=== PATIENT | male | born 1990 | race Caucasian/White ===

== ENCOUNTER 2021-12-16 10:21 | Observation (INO) ==
[2021-12-16] MEDS ORDERED: *HR* Dextrose 50 % in Water (Syg) 50 ML SYRINGE ONE (10:34)
[2021-12-16] MEDS ORDERED: 0.9 % Sodium Chloride 1,000 ML IV ONE ×2 (10:45→15:02)
[2021-12-16] MEDS ORDERED: Ondansetron 4 MG/2 ML VIAL IVP ONE ×2 (10:45→15:02)
[2021-12-16] MEDS ORDERED: *HR* Dextrose 50 % in Water (Syg) 50 ML SYRINGE IVP ONE (10:58)
[2021-12-16] MEDS ORDERED: Ibuprofen 600 MG TABLET PO STA (11:01)
[2021-12-16 11:43] LABS: Alanine Aminotransferase 9 Units/L (7-52); Albumin 4.3 g/dL (3.5-5.7); Albumin/Globulin Ratio 1.2 (1.1-2.2); Alkaline Phosphatase 51 Units/L (34-104); Amylase 19 Units/L (29-103); Aspartate Amino Transferase 18 Units/L (13-39); BUN/Creatinine Ratio 20 (6-26); Bilirubin,Total 0.2 mg/dL (0.3-1.0); Blood Urea Nitrogen 16 mg/dL (6-20); Carbon Dioxide 19 mEq/L (23-29); Chloride 103 mEq/L (98-107); Globulin 3.6 g/dL (2.4-3.5); Glucose 173 mg/dL (70-105); Lipase 13 Units/L (11-82); Osmolality,Calculated 299 (280-300); Potassium 3.5 mEq/L (3.5-5.1); Sodium 142 mEq/L (136-145); Total Protein 7.9 g/dL (6.4-8.9)
[2021-12-16 12:19] LABS: Troponin I < 0.03 ng/mL (< 0.04)
[2021-12-16 12:26] LABS: Bilirubin,Urine Negative (Negative); Blood,Urine Trace-intact (Negative); Clarity,Urine Slightly Cloudy (Clear); Color,Urine Yellow (Yellow); Glucose,Urine (UA) 100 mg/dL (Normal); Ketones,Urine 40 mg/dL (Negative); Leukocyte Esterase,Urine Negative (Negative); Nitrite,Urine Negative (Negative); PH,Urine 5.5 pH Units (5.0-8.0); Protein,Urine 100 mg/dL (Neg-Trace); Specific Gravity,Urine >= 1.030 (1.010-1.025); Urobilinogen,Urine Normal (Normal)
[2021-12-16 12:30] LABS: Bacteria,Urine Few per hpf (None-Few); RBC,Urine 0-3 per hpf (0-3); Squamous Epithelial Cell,Urine Few per hpf (None-Few)
[2021-12-16 13:15] LABS: Basophils % 0.3 %; Eosinophils % 0.3 %; Hematocrit 39.5 % (37.5-50.1); Hemoglobin 11.7 g/dL (12.9-16.9); Immature Granulocytes % 0.5 % (0-4); Lymphocytes % 14.1 %; Mean Corpuscular HGB Conc 29.6 g/dL (31.6-35.5); Mean Corpuscular Hemoglobin 23.9 pg (28.0-33.3); Mean Corpuscular Volume 80.8 fL (83.0-100.0); Mean Platelet Volume 9.1 fL (9.4-12.4); Monocytes # 0.3 K/mcL (0.0-1.3); Monocytes % 3.5 %; Platelet Count 520 K/mcL (140-400); Red Blood Count 4.89 M/mcL (4.19-5.50); Red Cell Distribution Width 20.9 % (11.5-14.5); Segmented Neutrophils % 81.3 %; White Blood Count 7.4 K/mcL (4.3-11.1)
[2021-12-16 13:25] LABS: INR 1.2
[2021-12-16 13:28] LABS: Activated Partial Thrombo Time 34.3 Seconds (26.0-36.0)
[2021-12-16] MEDS ORDERED: GI Cocktail 40 ML EACH PO ONE (14:54)
[2021-12-16] MEDS ORDERED: Pantoprazole 40 MG VIAL IVP ONE (15:02)
[2021-12-16] MEDS ORDERED: Famotidine 20 MG/2 ML VIAL IVP ONE (15:02)
[2021-12-16] MEDS ORDERED: Morphine Sulfate 2 MG/ML SYRINGE IVP ONE (15:02)
[2021-12-16] MEDS ORDERED: Mag Hydrox/Al Hydrox/Simeth 30 ML UDC PO PRN (16:04)
[2021-12-16] MEDS ORDERED: MOM Conc 10 ML UD.LIQ PO PRN (16:04)
[2021-12-16] MEDS ORDERED: Ondansetron 4 MG/2 ML VIAL IVP PRN (16:04)
[2021-12-16] MEDS ORDERED: Acetaminophen 325 MG TABLET PO PRN (16:04)
[2021-12-16] MEDS ORDERED: Naloxone 0.4 MG/ML INJ IVP PRN (16:04)
[2021-12-16] MEDS ORDERED: Melatonin 3 MG TABLET PO PRN (16:04)
[2021-12-16] MEDS ORDERED: Ondansetron ODT 4 MG TAB.RAPDIS SL PRN (16:04)
[2021-12-16] MEDS ORDERED: 0.9 % Sodium Chloride 1,000 ML IVC SCH (16:15)
[2021-12-16] MEDS ORDERED: *HR* Dextrose 50 % in Water (Syg) 50 ML SYRINGE IVP PRN (16:24)
[2021-12-16] MEDS ORDERED: D5% in Water 1,000 ML IVC PRN (16:24)
[2021-12-16] MEDS ORDERED: Dextrose Gel 15 GM/37.5 ML TUBE PO PRN ×2 (16:24)
[2021-12-16 16:52] VITALS: RESP 18; O2SAT 98
[2021-12-16] MEDS ORDERED: Piperacillin/Tazobactam 3.375 GM in 0.9 % Sodium Chloride Mini Bag 100 ML IVPB SCH (17:00)
[2021-12-16 17:01] LABS: Amphetamine Screen,Urine Negative ng/mL (Cutoff=1000); Barbiturate Screen,Urine Negative ng/mL (Cutoff=200); Benzodiazepines Screen,Urine Negative ng/mL (Cutoff=200); Cannabinoid Screen,Urine Positive ng/mL (Cutoff = 50); Cocaine Screen,Urine Negative ng/mL (Cutoff= 300); Opiate Screen,Urine Negative ng/mL (Cutoff=300); Phencyclidine Screen,Urine Negative ng/mL (Cutoff=25)
[2021-12-16] MEDS ORDERED: *HR* OxyCODONE Immed Rel 5 MG TABLET PO PRN (17:05)
[2021-12-16] MEDS ORDERED: Morphine Sulfate 2 MG/ML SYRINGE IVP PRN (17:07)
[2021-12-16] MEDS: Baclofen 10 MG TABLET PO SCH ×2 (18:40→20:43)
[2021-12-16] MEDS ORDERED: Gabapentin 300 MG CAPSULE PO SCH (21:00)
[2021-12-16 22:19] VITALS: BP 122/79; PULSE 112; TEMP 98.1
[2021-12-17] MEDS ORDERED: Pantoprazole 40 MG VIAL IVP SCH (09:00)
== END 2021-12-16 21:50 | disposition short-term general hospital (02) ==
LOC: EMEROOGRE 10:21 → INPGRE 10:21
PROVIDERS: ADMIT Family Medicine; ATTEND Family Medicine

== ENCOUNTER 2021-12-17 01:34 | Inpatient (IN) ==
[2021-12-17] MEDS ORDERED: Ondansetron 4 MG/2 ML VIAL IVP PRN (04:40)
[2021-12-17] MEDS ORDERED: Naloxone 0.4 MG/ML INJ IVP PRN (04:40)
[2021-12-17] MEDS ORDERED: D5% in Water 1,000 ML IVC PRN (04:42)
[2021-12-17] MEDS ORDERED: *HR* Dextrose 50 % in Water (Syg) 50 ML SYRINGE IVP PRN (04:42)
[2021-12-17] MEDS ORDERED: Dextrose Gel 15 GM/37.5 ML TUBE PO PRN ×2 (04:42)
[2021-12-17 04:58] LABS: Basophils % 0.4 %; Eosinophils # 0.2 K/mcL (0.0-0.6); Eosinophils % 1.6 %; Hematocrit 32.1 % (37.5-50.1); Immature Granulocytes % 0.3 % (0-4); Lymphocytes # 2.3 K/mcL (0.6-4.6); Lymphocytes % 23.5 %; Mean Corpuscular HGB Conc 31.2 g/dL (31.6-35.5); Mean Corpuscular Hemoglobin 24.2 pg (28.0-33.3); Mean Corpuscular Volume 77.5 fL (83.0-100.0); Mean Platelet Volume 9.3 fL (9.4-12.4); Monocytes # 0.6 K/mcL (0.0-1.3); Monocytes % 6.3 %; Neutrophils # 6.7 K/mcL (1.6-8.9); Platelet Count 449 K/mcL (140-400); Red Blood Count 4.14 M/mcL (4.19-5.50); Red Cell Distribution Width 19.9 % (11.5-14.5); Segmented Neutrophils % 67.9 %; White Blood Count 9.9 K/mcL (4.3-11.1)
[2021-12-17 05:14] LABS: BUN/Creatinine Ratio 34 (6-26); Blood Urea Nitrogen 23 mg/dL (6-20); Calcium 8.5 mg/dL (8.6-10.3); Carbon Dioxide 26 mEq/L (23-29); Chloride 104 mEq/L (98-107); Glucose 146 mg/dL (70-105); Osmolality,Calculated 292 (280-300); Potassium 3.5 mEq/L (3.5-5.1); Sodium 138 mEq/L (136-145)
[2021-12-17] MEDS: Cefepime HCl 2,000 MG in 0.9 % Sodium Chloride Mini Bag 100 ML IVPB SCH ×2 (05:57→17:40)
[2021-12-17] MEDS: Morphine Sulfate 2 MG/ML SYRINGE IVP PRN ×2 (05:58→11:36)
[2021-12-17] MEDS: Insulin LISPRO 300 UNITS/3 ML VIAL SUBQ SCH ×3 (09:35→17:41)
[2021-12-17] MEDS: Potassium Chloride Elixir 20 MEQ/15 ML UDC PO SCH (09:40)
[2021-12-17] MEDS: Gabapentin 300 MG CAPSULE PO SCH ×3 (09:40→22:25)
[2021-12-17] MEDS: Baclofen 10 MG TABLET PO SCH ×4 (09:40→22:25)
[2021-12-17] MEDS ORDERED: *HR* OxyCODONE Immed Rel 5 MG TABLET PO PRN (12:25)
[2021-12-17 13:33] LABS: Estimated Average Glucose 108 mg/dl; Hemoglobin A1C 5.4 %
[2021-12-17] MEDS: *HR* OxyCODONE Immed Rel 5 MG TABLET PO PRN ×3 (14:22→22:26)
[2021-12-18] MEDS: *HR* OxyCODONE Immed Rel 5 MG TABLET PO PRN ×5 (02:45→22:14)
[2021-12-18 04:47] LABS: Basophils % 0.4 %; Eosinophils # 0.3 K/mcL (0.0-0.6); Eosinophils % 3.5 %; Hematocrit 32.7 % (37.5-50.1); Immature Granulocytes % 0.3 % (0-4); Lymphocytes # 1.9 K/mcL (0.6-4.6); Lymphocytes % 25.9 %; Mean Corpuscular HGB Conc 30.6 g/dL (31.6-35.5); Mean Corpuscular Hemoglobin 24.2 pg (28.0-33.3); Mean Corpuscular Volume 79.2 fL (83.0-100.0); Mean Platelet Volume 9.7 fL (9.4-12.4); Monocytes # 0.6 K/mcL (0.0-1.3); Monocytes % 8.7 %; Neutrophils # 4.5 K/mcL (1.6-8.9); Platelet Count 396 K/mcL (140-400); Red Blood Count 4.13 M/mcL (4.19-5.50); Red Cell Distribution Width 19.9 % (11.5-14.5); Segmented Neutrophils % 61.2 %; White Blood Count 7.4 K/mcL (4.3-11.1)
[2021-12-18 04:57] LABS: BUN/Creatinine Ratio 26 (6-26); Blood Urea Nitrogen 15 mg/dL (6-20); Calcium 8.5 mg/dL (8.6-10.3); Carbon Dioxide 29 mEq/L (23-29); Chloride 103 mEq/L (98-107); Glucose 107 mg/dL (70-105); Osmolality,Calculated 287 (280-300); Potassium 3.7 mEq/L (3.5-5.1); Sodium 138 mEq/L (136-145)
[2021-12-18] MEDS: Cefepime HCl 2,000 MG in 0.9 % Sodium Chloride Mini Bag 100 ML IVPB SCH ×2 (06:11→18:13)
[2021-12-18] MEDS: *HR* Enoxaparin 40 MG/0.4 ML SYRINGE SQ SCH (06:20)
[2021-12-18] MEDS: Gabapentin 300 MG CAPSULE PO SCH ×3 (09:17→22:10)
[2021-12-18] MEDS: Insulin LISPRO 300 UNITS/3 ML VIAL SUBQ SCH ×3 (09:17→16:54)
[2021-12-18] MEDS: Baclofen 10 MG TABLET PO SCH ×4 (09:17→22:10)
[2021-12-18] MEDS: Potassium Chloride Elixir 20 MEQ/15 ML UDC PO SCH (09:18)
[2021-12-19] MEDS: *HR* OxyCODONE Immed Rel 5 MG TABLET PO PRN ×3 (02:22→14:21)
[2021-12-19] MEDS: Cefepime HCl 2,000 MG in 0.9 % Sodium Chloride Mini Bag 100 ML IVPB SCH (06:03)
[2021-12-19] MEDS: *HR* Enoxaparin 40 MG/0.4 ML SYRINGE SQ SCH (06:04)
[2021-12-19] MEDS: Insulin LISPRO 300 UNITS/3 ML VIAL SUBQ SCH ×2 (07:34→14:20)
[2021-12-19] MEDS: Baclofen 10 MG TABLET PO SCH ×2 (09:50→14:21)
[2021-12-19] MEDS: Gabapentin 300 MG CAPSULE PO SCH ×2 (09:50→14:21)
[2021-12-19] MEDS: Potassium Chloride Elixir 20 MEQ/15 ML UDC PO SCH (09:52)
[2021-12-19 11:26] VITALS: BP 111/73; PULSE 62; RESP 16; TEMP 97.8; O2SAT 98
== END 2021-12-19 19:08 | DRG 593 ==
LOC: INPGRE
PROVIDERS: ADMIT Student in an Organized Health Care Education/Training Program; ATTEND Family Medicine